=== PATIENT | male | born 1980 | race Caucasian/White ===

== ENCOUNTER 2022-01-11 05:11 | Emergency (ER) | payer OTHER ==
[~2022-01-11] VITALS: Ht 195.6 cm; Wt 96.2 kg
== END 2022-01-11 10:32 | disposition home or self-care (01) ==
LOC: ER 05:11
DX: K52.9 Noninfective gastroenteritis and colitis, unspecified (principal); Z88.2 Allergy status to sulfonamides; Z88.1 Allergy status to other antibiotic agents